=== PATIENT | female | born 1990 ===

== ENCOUNTER 2018-08-15 16:06 | Emergency (ER) | payer OTHER ==
[2018-08-15 16:35] LABS: Influenza A Molecular POSITIVE (Negative)
--- NOTE | 2018-08-15 16:41 | UC ---
FLU HPI - HPI Summary HPI Summary: Patient presents to urgent care stating Tuesday she started to have some body aches and nausea. Patient states she was due for her menses so treated her discomfort as that. Patient states progressively since this time she been very tired, had body aches, congestion, had a non-productive cough. Patient states she's been taking DayQuil and NyQuil and has not measured temperature but doesn' t have a thermometer. Patient states at times she feels very sweaty. Patient is drinking water but no appetite. No vomiting a mild nausea. No diarrhea. Patient without sick contacts. Patient does work in a [employer]. Patient did not get a flu vaccine. Patient denies known sick contacts. Patient lives alone. Patient's not immunocompromised. Patient's medications reviewed this visit. - History of Current Complaint Chief Complaint: UCGeneralIllness Stated Complaint: FLU LIKE SYMPTOMS Time Seen by Provider: 08/15/18 16:28 Hx Obtained From: Patient Hx Last Menstrual Period: now Onset/Duration: Sudden Onset Severity Currently: Moderate Severity Initially: Severe Pain Intensity: 9 Pain Scale Used: 0-10 Numeric Associated Signs & Symptoms: Positive: Myalgia, Cough, Sore Throat, Nasal Congestion, Headache Related Hx: Possible Flu/Infectious Exposure, Smoking - Allergy/Home Medications Allergies/Adverse Reactions: Allergies Allergy/AdvReac Type Severity Reaction Status Date / Time No Known Allergies Allergy Verified 08/15/18 16:24 PMH/Surg Hx/FS Hx/Imm Hx Previously Healthy: Yes - Surgical History Surgical History: None - Family History Known Family History: Positive: Non-Contributory - Social History Occupation: Employed Full-time Lives: Alone Alcohol Use: Occasionally Substance Use Type: None Smoking Status (MU): Light Every Day Tobacco Smoker Review of Systems All Other Systems Reviewed And Are Negative: Yes Constitutional: Positive: Fever - tactile, Fatigue Eyes: Positive: Negative ENT: Positive: Sore Throat, Ear Ache, Nasal Discharge, Sinus Congestion Respiratory: Positive: Cough Cardiovascular: Positive: Negative Gastrointestinal: Positive: Nausea Psychological: Positive: Negative Physical Exam - Summary Physical Exam Summary: Vital Signs Reviewed: Yes A+Ox3, no distress. tired appearing Eyes: Conjunctiva Clear, JAZMINE. EOM intact and full ENT: Hearing grossly normal TM x 2 clear, mmoist, uvula midline, no exudate, no erythema Neck: Positive: Supple Respiratory: Positive: No respiratory distress, No accessory muscle use + BS throughout, mild end expiratory wheeze Cardiovascular: RRR nl s1, s2 no m/r CBT <2 sec abd soft + BS nt/nd no guarding, no distension Musculoskeletal Exam: OCHOA x 4 without difficulty Strength Intact, ROM Intact Neurological: Positive: Alert, + sensation throughout Psychological: Positive: Normal Response To Family Skin: Positive: no rash, no ecchymosis Triage Information Reviewed: Yes Vital Signs: Initial Vital Signs Temp 99.9 F 08/15/18 16:19 Pulse 93 08/15/18 16:19 Resp 18 08/15/18 16:19 BP 113/74 08/15/18 16:19 Pulse Ox 97 08/15/18 16:19 Flu Course/Dx - Course Course Of Treatment: Pt presents to the ED with 2 days progressive body aches, cough,nausea, non productive cough and tactile temps VSS On exam pt with mild cough, mild wheeze, fatigue. Pt with + influenza A. Will start Tamiflu. supportive care. humidify air. reviewed motrin/apap dosing. return precautions - Differential Dx/Diagnosis Provider Diagnosis: Influenza A Discharge - Sign-Out/Discharge Documenting (check all that apply): Patient Departure All imaging exams completed and their final reports reviewed: No Studies - Discharge Plan Condition: Stable Disposition: HOME Prescriptions: Albuterol HFA INHALER* [Ventolin HFA Inhaler*] 2 puff INH Q4H PRN #1 mdi PRN Reason: wheeze Oseltamivir CAP* [Tamiflu CAP*] 75 mg PO BID #10 cap Patient Education Materials: Influenza (ED) Forms: *Gen. Provider Communication, *Work Release Referrals: [facility] [Provider Group] No Primary Care Phys,[facility] [Primary Care Provider] - Additional Instructions: - Stay well hydrated. Drink plenty of non-alcoholic, non-caffinated beverages. - Alternate ibuprofen (Advil, Motrin) 600mg and Tylenol 1000mg every 3 hours for pain or fever. Take with food. Do NOT take for more than 4-5 days. - These infections are spread by secretions - do NOT share eating or drinking utensils - clean items you share with other people such as cell phones, computer mouse, TV remote, computer tablets,etc. Once you start to feel better, change your toothbrush and your pillowcase. - get plenty of restful sleep - humidify the air in the room where you sleep - boil water, run a hot steam shower, vaporizer, cups of water by heat register - okay to take over the counter decongestant and cough medication - Take Tamiflu as prescribed until gone - Okay to use inhaler - 2 puffs- every 4 hours for cough and wheeze - Work to decrease cigarette smoke - contact your doctor or the [facility] with questions or concerns - Billing Disposition and Condition Condition: STABLE Disposition: Home
== END 2018-08-15 17:11 | disposition home or self-care (01) ==
LOC: UCEAST 16:06
DX: J10.1 Influenza due to other identified influenza virus with other respiratory manifestations (principal); R11.0 Nausea; F17.200 Nicotine dependence, unspecified, uncomplicated
CPT/HCPCS: 99202; G0463